=== PATIENT | male | born 2000 | race Caucasian/White ===

== ENCOUNTER 2020-05-14 08:15 | Day surgery (SDC) | payer BC ==
[2020-05-12 15:34] VITALS: BMI 22.5
[~2020-05-14 08:15] MED LIST: LACTATED RINGERS 1,000 ML IV SCH; LIDOCAINE 1% (10MG/ML) FOR IV START INTRADERMA PRN
[2020-05-14 08:46] VITALS: TEMP 98.6
[2020-05-14] MEDS ORDERED: PROPOFOL 10 MG/ML 20 ML VIAL IV ONE (09:05)
--- NOTE | 2020-05-14 09:07 | P.GSHP ---
History of Present Illness H&P Date: 05/14/20 Chief Complaint: Diarrhea, GI bleed This a 19-year-old female been safe for colonoscopy. He's had issues with diarrhea and rectal bleeding. Past Medical History Additional Past Medical History / Comment(s): avoids certain food-abdominal pain below umbilicus,fluctuates between constipation and diarrhea History of Any Multi-Drug Resistant Organisms: None Reported Past Surgical History: No Surgical Hx Reported Past Anesthesia/Blood Transfusion Reactions: No Reported Reaction Additional Past Anesthesia/Blood Transfusion Reaction / Comment(s): no hx of anesthesia or blood transfusion Smoking Status: Current every day smoker, Vaper - Past Family History Mother Family Medical History: No Reported History Father Additional Family Medical History / Comment(s): hx polyps had bowel resection,. paternal grandfather had colon CA Medications and Allergies Home Medications Medication Instructions Recorded Confirmed Type Cetirizine HCl [Zyrtec] 10 mg PO DAILY 05/12/20 05/12/20 History Simethicone [Gas-X] 125 mg PO DAILY PRN 05/12/20 05/12/20 History Allergies Allergy/AdvReac Type Severity Reaction Status Date / Time No Known Allergies Allergy Verified 05/14/20 08:43 Surgical - Exam Vital Signs Temp Pulse Resp BP Pulse Ox 98.6 F 70 17 138/74 100 05/14/20 08:46 05/14/20 08:46 05/14/20 08:46 05/14/20 08:46 05/14/20 08:46 - General well developed, well nourished, no distress - Eyes PERRL - ENT normal pinna - Neck no masses - Respiratory normal expansion - Cardiovascular Rhythm: regular - Abdomen Abdomen: soft, non tender Assessment and Plan Assessment: GI bleed, diarrhea. We'll perform colonoscopy.
--- NOTE | 2020-05-14 09:19 | P.OP ---
Date of Procedure: 05/14/20 Preoperative Diagnosis: GI bleed Diarrhea Postoperative Diagnosis: Normal colonoscopy Random rectal biopsy Internal hemorrhoids Procedure(s) Performed: Colonoscopy Anesthesia: MAC Surgeon: Kirk Ceballos Pathology: other (Rectum) Condition: stable Disposition: PACU Description of Procedure: The patient's placed on the endoscopy table in the lateral position. He received IV sedation. Digital rectal exam was performed which revealed internal hemorrhoids.. Flexible colonoscope was then placed patient anus passed throughout the entire colon. The ileocecal valve was visualized. The cecum, ascending and transverse colon appeared normal. The descending; appeared normal. The rectum appeared normal. Due to patient's symptoms of diarrhea a random rectal biopsies performed. There is no inflammatory changes seen. Scope was withdrawn for patient. It was presumed that the patient rectal bleeding may been due to internal hemorrhoids.
[2020-05-14 09:47] VITALS: BP 114/62; PULSE 60; RESP 16
== END 2020-05-14 09:54 | disposition home or self-care (01) ==
LOC: ORWHC2ENDO 08:15
PROVIDERS: ATTEND Surgery
DX: K64.8 Other hemorrhoids (principal); J30.2 Other seasonal allergic rhinitis; F17.290 Nicotine dependence, other tobacco product, uncomplicated; Z83.71 Family history of colonic polyps; Z80.0 Family history of malignant neoplasm of digestive organs
CPT/HCPCS: 88305; 45380; J2704

== ENCOUNTER 2021-08-01 11:20 | Day surgery (SDC) | payer BC ==
[2021-07-28 15:49] VITALS: BMI 22.4
[2021-08-01 12:00] VITALS: TEMP 97.1
[2021-08-01] MEDS ORDERED: PROPOFOL 10 MG/ML 20 ML VIAL IV ONE (12:46)
[2021-08-01] MEDS ORDERED: LIDOCAINE 1% INJ 10MG/ML (20 ML MDV) ONE (12:46)
[2021-08-01] MEDS ORDERED: MIDAZOLAM 2 MG/2 ML VIAL ONE (12:46)
--- NOTE | 2021-08-01 12:59 | P.GSHP ---
History of Present Illness H&P Date: 08/01/21 Chief Complaint: Epigastric pain This a 20-year-old male who's had complaints of epigastric pain.. Patient presents today for EGD. Past Medical History Additional Past Medical History / Comment(s): IBS-C. c/o NVD x2 months History of Any Multi-Drug Resistant Organisms: None Reported Past Surgical History: No Surgical Hx Reported Additional Past Surgical History / Comment(s): Colonoscopy Past Anesthesia/Blood Transfusion Reactions: No Reported Reaction Additional Past Anesthesia/Blood Transfusion Reaction / Comment(s): no blood transfusion Smoking Status: Former smoker, Vaper - Past Family History Mother Family Medical History: No Reported History Father Additional Family Medical History / Comment(s): hx polyps had bowel resection,. paternal grandfather had colon CA Medications and Allergies Home Medications Medication Instructions Recorded Confirmed Type Dextroamphetamine/Amphetamine 10 mg PO BID 07/28/21 07/28/21 History [Adderall] QUEtiapine [SEROquel] 200 mg PO HS 07/28/21 07/28/21 History Allergies Allergy/AdvReac Type Severity Reaction Status Date / Time No Known Allergies Allergy Verified 08/01/21 11:52 Surgical - Exam Vital Signs Temp Pulse Resp BP Pulse Ox 97.1 F L 81 15 153/78 100 08/01/21 11:58 08/01/21 11:58 08/01/21 11:58 08/01/21 11:58 08/01/21 11:58 - General well developed, well nourished, no distress - Eyes PERRL - ENT normal pinna - Neck no masses - Respiratory normal expansion - Cardiovascular Rhythm: regular - Abdomen Abdomen: soft, non tender Assessment and Plan Assessment: Epigastric pain. We'll perform EGD.
--- NOTE | 2021-08-01 13:07 | P.OP ---
Date of Procedure: 08/01/21 Preoperative Diagnosis: Epigastric pain Postoperative Diagnosis: Mild antral gastritis Hiatal hernia Mild esophagitis Procedure(s) Performed: EGD Anesthesia: MAC Surgeon: Kirk Ceballos Pathology: other (Antrum, esophagus) Condition: stable Disposition: PACU Description of Procedure: Patient's placed on the endoscopy table in the lateral position. He received IV sedation. The gastro-/oropharynx passed in the esophagus and stomach. Scope was then placed through the pylorus. The first and second portion of the duodenum appeared normal. Scope was then brought back the antrum this was mildly inflamed. The scope was unretroflexed and remainder of the stomach appeared normal. The patient had a small hiatal hernia. The GE junction was at 38 cm the distal esophagus appeared inflamed. A biopsies performed. The proximal esophagus appeared normal.
[2021-08-01 13:14] VITALS: RESP 16
[2021-08-01 13:31] VITALS: BP 133/90; PULSE 67
== END 2021-08-01 14:16 | disposition home or self-care (01) ==
LOC: ORWHC2ENDO 11:20
PROVIDERS: ATTEND Surgery
DX: R10.13 Epigastric pain (principal); K29.50 Unspecified chronic gastritis without bleeding; K20.90 Esophagitis, unspecified without bleeding; K44.9 Diaphragmatic hernia without obstruction or gangrene; K58.1 Irritable bowel syndrome with constipation; F17.290 Nicotine dependence, other tobacco product, uncomplicated; Z83.71 Family history of colonic polyps; Z80.0 Family history of malignant neoplasm of digestive organs; Z79.899 Other long term (current) drug therapy
CPT/HCPCS: 88305; 43239; J2250; J2001; J2704

== ENCOUNTER → 2021-09-12 | Outpatient (CLI) | payer BC ==
--- NOTE | 2021-09-12 09:29 | NM ---
EXAMINATION TYPE: NM hepatobiliary w CCK DATE OF EXAM: 09/12/2021 COMPARISON: NONE HISTORY: Acute cholecystitis per order. Abdominal pain with diminished appetite heartburn, bloating, and reflux-like symptoms with nausea and vomiting per patient. TECHNIQUE: After the intravenous administration of 5.3 mCi Tc 99m Mebrofenin hepatobiliary scintigrap hy is performed. Immediate images post injection. FINDINGS: There is satisfactory initial accumulation of tracer by the liver. The gallbladder is visualized wit hin 25 minutes. The small bowel activity is noted within 10 minutes. At one hour CCK was administer ed, patient was injected with 1.6 mcg of Kinevac, and gallbladder ejection fraction is calculated at 55 %, in the normal range. Therefore there is no scintigraphic evidence of cystic or common bile soni t obstruction to suggest acute cholecystitis or gallbladder dyskinesia. IMPRESSION: Exam is within normal limits.
== END | disposition home or self-care (01) ==
LOC: RADNMMAIN 06:40
PROVIDERS: ATTEND Surgery
DX: K81.0 Acute cholecystitis (principal)
CPT/HCPCS: 78227; A9537; J2805